=== PATIENT | female | born 1960 | race Caucasian/White ===

== ENCOUNTER → 2018-01-02 | Outpatient (CLI) | payer BC, OTHER ==
[~2018-01-02] MED LIST: CALCIUM 500 +1 EAC6 PO; CENTRUM SILVER1 EAC4 PO; DULCOLAX5 MG PO; FISH OIL 1,0001 EAC5 PO; FLEXERIL PO; MEDROLDOSEPACK PO; METAXALONE800 MG PO; MOBIC15 MG PO; NORCO 5-325 TA1 EACH PO; PERCOCET 5-3251 EACH PO; SYNTHROID112 MCG PO; VALIUM5 MG PO
== END ==
LOC: RAD 14:54
DX: R14.0 Abdominal distension (gaseous) (principal)

== ENCOUNTER 2018-05-12 08:41 | Emergency (ER) | payer BC, OTHER ==
[~2018-05-12] VITALS: Ht 165.1 cm; Wt 66.7 kg
--- NOTE | ~2018-05-12 | EKG ---
[address] [place] [address] ELECTROCARDIOGRAM REPORT Name: KARENA CARPIO Room #: [facility]#: [id number] Admission: 05/12/18 Attend Phys: Discharge: Date of : 58 Report #: [id number] THIS REPORT FOR: //name// [facility] ED Test Date: 2018-05-12 Test Time: 08:43:38 Pat Name: KARENA CARPIO Department: Room: Gender: F [employer] Account Assistant: SEVERINO : 1960 Requested By: Jarad Olivo Order Number: [id number] MD: Rusty Almaraz Measurements Intervals [place] Rate: 47 P: 56 MI: 191 QRS: -41 QRSD: 99 T: 39 QT: 488 QTc: 432 Interpretive Statements Sinus bradycardia Atrial premature complex Left axis deviation Compared to ECG 03/11/2012 05:38:52 Atrial premature complex(es) now present Left-axis deviation now present Sinus rhythm no longer present Electronically Signed On 05-12-2018 10:49:15 CDT by Rusty Almaraz [email or web address] <ELECTRONICALLY SIGNED> By: Rusty Almaraz MD 05/12/18 1049 Rusty Almaraz MD /CRISTEL
[2018-05-12 09:55] LABS: HEMOGLOBIN 13.9 gm/dL (12.0-15.0); MCHC 33.8 g/dL (28.0-37.0); MCV 91.7 fL (80.0-100.0); PLATELET COUNT 185 thou/uL (150-400); RBC 4.47 mil/uL (4.20-5.00); WBC 2.5 thou/uL (4.0-11.0)
[2018-05-12 10:05] LABS: ANION GAP 3 mmol/L (7-16); BUN 17 mg/dL (7-18); CALCIUM 8.7 mg/dL (8.5-10.1); CHLORIDE 106 mmol/L (98-107); CO2 30 mmol/L (21-32); GLUCOSE 92 mg/dL (74-106); POTASSIUM 3.6 mmol/L (3.5-5.1); SODIUM 139 mmol/L (136-145)
[2018-05-12 10:14] LABS: TROPONIN-I <0.06 ng/mL (<0.06)
[2018-05-12 10:20] LABS: ABSOLUTE NEUTROPHILS 0.9 thou/uL (1.4-8.2)
[2018-05-12 10:21] LABS: MACROCYTES 1+
[2018-05-12 11:37] VITALS: BP 111/73
== END 2018-05-12 11:43 | disposition home or self-care (01) ==
LOC: ER 08:41
PROVIDERS: Emergency Medicine
DX: R07.89 Other chest pain (principal); E89.0 Postprocedural hypothyroidism; Z88.0 Allergy status to penicillin